=== PATIENT | male | born 1970 | race Caucasian/White ===

== ENCOUNTER 2016-11-02 19:09 | Emergency (ER) ==
[2016-11-02 19:20] VITALS: TEMP 98.6; BMI 28.5
--- NOTE | 2016-11-02 19:40 | ED.PDOC ---
General ED Provider: Dr. MICHELLE MARLOW Chief Complaint: Nausea/Vomiting Stated Complaint: Patient is a 46 year old male who comes to the ER with c/o dizziness, periumbilical abdominal pain, and vomiting Time Seen by Physician: 19:37 Mode of Arrival: Walk-In Information Source: Patient Exam Limitations: No limitations Nursing and Triage Documentation Reviewed and Agree: Yes GI Complaint Exam - Abdominal Pain Complaint/Exam Onset: Sudden Duration: 1 hour Symptoms Are: Resolved Timing: Intermittent Initial Severity: Mild Current Severity: Mild Location of Pain: Diffuse Radiates To: Denies: Chest, Back, Flank, LLQ, RLQ, Inguinal Character: Reports: Aching Aggravating: Reports: None Alleviating: Reports: Vomiting Associated Signs and Symptoms: Reports: Dizziness, Vomiting AAA Risk Factors: Reports: None Cardiac Risk Factors: Reports: None Testicular Torsion Risk Factors: Reports: None Surgical Obstruction Risk Factors: Reports: None Related Surgical History: Reports: None Abdominal Findings: Present: None Differential Diagnoses: Appendicitis, Bowel Obstruction, AAA Quality Indicator For Non-Traumatic Chest Pain/Syncope: EKG Performed Review of Systems - Review Of Systems Constitutional: Reports: No symptoms Eyes: Reports: No symptoms Ears, Nose, Mouth, Throat: Reports: No symptoms Respiratory: Reports: No symptoms Cardiac: Reports: Lightheadedness GI: Reports: Abdominal pain, Nausea, Vomiting : Reports: No symptoms Musculoskeletal: Reports: No symptoms Skin: Reports: No symptoms Neurological: Reports: No symptoms Endocrine: Reports: No symptoms Hematologic/Lymphatic: Reports: No symptoms All Other Systems: Reviewed and Negative Past Medical History - Past Medical History Endocrine: Reports: None Cardiovascular: Reports: None Respiratory: Reports: None Hematological: Reports: None Gastrointestinal: Reports: None Genitourinary: Reports: None Neuro/Psych: Reports: None Musculoskeletal: Reports: None Cancer: Reports: None - Surgical History General Surgical History: Reports: Appendectomy, Other (vasectomy ) - Family History Family History: Reports: Unknown - Social History Smoking Status: Never smoker Hx Substance Use: No Alcohol Screening: None - Immunizations Tetanus Shot up to Date: (unknown) Physical Exam - Physical Exam Appearance: Ill-appearing, No pain distress, Well-nourished Ill-appearing: Mild Eyes: NAI, EOMI, Conjunctiva clear ENT: Ears normal, Nose normal, Oropharynx normal Respiratory: Airway patent, Breath sounds clear, Breath sounds equal, Respirations nonlabored Cardiovascular: RRR, Pulses normal, No rub, No murmur GI/: Soft, Nontender Musculoskeletal: Normal strength, ROM intact, No edema, No calf tenderness Skin: Warm, Dry, Normal color Neurological: Sensation intact, Motor intact, Reflexes intact, Cranial nerves intact, Alert, Oriented Psychiatric: Anxious Interpretation - Radiology Interpretation Radiology Interpretation By: Radiologist Radiology Results: Negative Exam Interpreted: CT Scan (head and abdomen. ) - EKG Interpretation Time of EKG #1: 20:34 Rate: Normal Rhythm: Sinus Ectopy: None Ramona: NL ST Segment: Normal Interpretation: Normal EKG Re-Evaluation - Re-Evaluation Time of Re-Evaluation: 21:20 Status: Improved Critical Care Note - Critical Care Note Total Time (mins): 0 Course - Course Hematology/Chemistry: 11/02/16 20:05 11/02/16 20:05 Orders, Labs, Meds: Lab Review 11/02/16 11/02/16 20:05 20:06 WBC 6.97 RBC 4.86 Hgb 13.6 L Hct 40.7 L MCV 83.7 MCH 28.0 MCHC 33.4 RDW Coeff of Shira 12.1 Plt Count 175 Immature Gran % (Auto) 0.3 Neut % (Auto) 69.4 Lymph % (Auto) 22.1 [place] % (Auto) 6.6 Eos % (Auto) 0.9 Baso % (Auto) 0.7 Immature Gran # (Auto) 0.0 Neut # 4.8 Lymph # 1.5 [place] # 0.5 Eos # 0.1 Baso # 0.1 Sodium 142 Potassium 4.1 Chloride 109 H Carbon Dioxide 23 Anion Gap 14.1 BUN 11 Creatinine 1.13 H Estimated GFR (MDRD) 70.00 BUN/Creatinine Ratio 9.73 Glucose 90 Calcium 8.7 Total Bilirubin 0.34 AST 14 L ALT 15 Alkaline Phosphatase 73 Total Creatine Kinase 119 CK-MB (CK-2) 1.3 CK-MB (CK-2) % 1.07735 Troponin I < 0.0100 Total Protein 6.5 Albumin 3.9 Globulin 2.6 Albumin/Globulin Ratio 1.50 Influenza A (Rapid) Negative Influenza B (Rapid) Negative Orders Category Date Time Status EKG-(ED ONLY) Stat CARDIO 11/02/16 20:00 Completed ED IV/MEDIPORT/POWERPORT .ONCE EMERGENCY 11/02/16 20:00 Active ED ORTHOSTATIC VITAL SIGNS .ONCE EMERGENCY 11/02/16 20:00 Active CBC W/ AUTO DIFF Stat LAB 11/02/16 20:05 Completed COMPREHENSIVE METABOLIC PANEL Stat LAB 11/02/16 20:05 Completed CREATINE KINASE Stat LAB 11/02/16 20:05 Completed MOLECULAR GROUP A STREP Stat LAB 11/02/16 20:06 Results RAPID FLU A/B Stat LAB 11/02/16 20:06 Completed STREP SCREEN Stat LAB 11/02/16 20:06 Results TROPONIN I Stat LAB 11/02/16 20:05 Completed 0.9 % Sodium Chloride [Saline Flush] MEDS 11/02/16 20:00 Discontinued 1 syr IVF PRN PRN Ondansetron HCl/Pf [Zofran 4 mg/2 ml] MEDS 11/02/16 20:53 Discontinued 4 mg IVP ONCE STA Sodium Chloride 0.9% [Sodium Chloride] 1,000 ml MEDS 11/02/16 20:00 Discontinued IV 1,000 mls/hr Sodium Chloride 0.9% [Sodium Chloride] 1,000 ml MEDS 11/02/16 20:00 Discontinued IV 125 mls/hr CT ABDOMEN/PELVIS WO CONTRAST Stat RADS 11/02/16 20:[address] HEAD W/O CONTRAST Stat RADS 11/02/16 20:00 Completed Medications Discontinued Medications Generic Name Dose Route Start Last Admin Trade Name Freq PRN Reason Stop Dose Admin Sodium Chloride 1,000 mls @ 125 mls/hr 11/02/16 20:00 11/02/16 20:08 Sodium Chloride IV 11/03/16 03:59 125 mls/hr .Q8H STA Administration Sodium Chloride 1,000 mls @ 1,000 mls/hr 11/02/16 20:00 11/02/16 21:52 Sodium Chloride IV 11/02/16 20:59 1,000 mls/hr .Q1H STA Administration Ondansetron HCl 4 mg 11/02/16 20:53 11/02/16 21:04 Zofran 4 Mg/2 Ml IVP 11/02/16 20:54 4 mg ONCE STA Administration Sodium Chloride 1 syr 11/02/16 20:00 Saline Flush IVF PRN PRN To flush IV Vital Signs: Temp Pulse Resp BP Pulse Ox 11/02/16 20:15 125/86 11/02/16 20:13 120/71 11/02/16 19:10 98.6 F 79 20 131/91 H 99 Departure - Departure Time of Disposition: 21:38 Disposition: HOME SELF-CARE Discharge Problem: Nausea, Vomiting Instructions: Acute Nausea and Vomiting (ED) Condition: Fair Pt referred to PMD for follow-up: Yes Additional Instructions: Push fluids Take medications as needed for nausea Follow up with PCP in 2 days Prescriptions: Ondansetron HCl [Zofran Tab] 4 mg PO Q8H PRN #14 tablet PRN Reason: Nausea / Vomiting Allergies/Adverse Reactions: Allergies dextromethorphan HBr [From Tylenol Cold Multi-Symptom Day] Adverse Reaction ( Verified 11/02/16 21:10) phenylephrine HCl [From Tylenol Cold Multi-Symptom Day] Adverse Reaction ( Verified 11/02/16 21:10) Home Medications: Ambulatory Orders Ondansetron HCl [Zofran Tab] 4 mg PO Q8H PRN #14 tablet 11/02/16 Disposition Discussed With: Patient, Family
[2016-11-02] MEDS ORDERED: SODIUM CHLORIDE 1,000 ML IV STA ×2 (20:00)
[2016-11-02 20:15] VITALS: BP 125/86
[2016-11-02 20:20] LABS: BASOPHILS # (AUTO) 0.1 K/uL (0-0.2); BASOPHILS % (AUTO) 0.7 % (0.0-3.0); EOSINOPHILS # (AUTO) 0.1 K/ul (0.0-0.7); EOSINOPHILS % (AUTO) 0.9 % (0.0-7.0); HEMATOCRIT 40.7 % (42.0-52.0); HEMOGLOBIN 13.6 g/dl (14.0-18.0); IMMATURE GRANULOCYTE % (AUTO) 0.3 % (0.0-5.0); LYMPHOCYTES # (AUTO) 1.5 K/uL (0.60-3.4); LYMPHOCYTES % (AUTO) 22.1 (10.0-50.0); MEAN CORPUSCULAR HGB CONC 33.4 (31.8-35.4); MEAN CORPUSCULAR VOLUME 83.7 fl (80.0-94.0); MONOCYTES # (AUTO) 0.5 K/uL (0.4-2.0); MONOCYTES % (AUTO) 6.6 (0-10); NEUTROPHILS # (AUTO) 4.8 K/ul (2.0-6.9); NEUTROPHILS % (AUTO) 69.4; PLATELET COUNT 175 10^3/uL (140-440); RED BLOOD COUNT 4.86 10^6/ul (4.70-6.10); WHITE BLOOD COUNT 6.97 K/ul (4.2-10.2)
[2016-11-02 20:25] LABS: FLU INTERNAL QC INTERNAL QC VALID; RAPID FLU A NEGATIVE (NEGATIVE); RAPID FLU B NEGATIVE (NEGATIVE)
[2016-11-02] MEDS ORDERED: ZOFRAN 4 MG/2 ML IVP STA (20:53)
[2016-11-02 20:55] LABS: ALANINE AMINOTRANSFERASE 15 U/L (12-78); ALBUMIN 3.9 g/dL (3.4-5.0); ALKALINE PHOSPHATASE 73 U/L (50-136); ANION GAP 14.1; ASPARTATE AMINO TRANSFERASE 14 U/L (15-37); BILIRUBIN,TOTAL 0.34 mg/dL (0.00-1.20); BLOOD UREA NITROGEN 11 mg/dL (7-18); BUN/CREATININE RATIO 9.73; CALCIUM 8.7 mg/dL (8.2-10.2); CARBON DIOXIDE 23 mmol/L (21-32); CHLORIDE 109 mmol/L (98-107); CREATINE KINASE 119 U/L; CREATININE 1.13 mg/dL (0.60-1.10); GLUCOSE 90 mg/dL (70-100); POTASSIUM 4.1 mmol/L (3.5-5.1); SODIUM 142 mmol/L (136-145); TOTAL PROTEIN 6.5 g/dL (6.4-8.2)
--- NOTE | 2016-11-02 20:59 | CT ---
EXAM: CT head without contrast HISTORY: Dizziness COMPARISON: CT head 09/04/2016 TECHNIQUE: Serial axial images of the brain were obtained from the skull base to the vertex without IV contrast. FINDINGS: The ventricles, cisterns and sulci are normal. The piper-white matter junction is well ma intained. No midline shift or mass is identified. There is no abnormal intra or extra-axial fluid collection. The paranasal sinuses demonstrate mild mucosal thickening. The mastoid air cells are c lear. The osseous calvarium is intact. IMPRESSION: No acute intracranial abnormality or hemorrhage. If further evaluation is clinically indicated, MRI may be obtained. There is mild paranasal sinus mucosal thickening.
[2016-11-02 21:03] LABS: CREATINE KINASE MB 1.3 ng/ml (0.0-3.6)
--- NOTE | 2016-11-02 21:08 | CT ---
EXAM: CT abdomen pelvis without contrast HISTORY: Abdominal pain. Previous appendectomy, vasectomy COMPARISON: 09/04/2016 TECHNIQUE: Serial axial images of the abdomen pelvis were performed from the lung bases through the inferior pelvis without contrast. These were viewed in multiple planes. FINDINGS: Images of the lower thorax show no pulmonary infiltrate. No pleural fluid is seen. Abdomen. There is no intraperitoneal free air. The liver, spleen, pancreas, adrenal glands are unremarkable. There is no renal calculus. No obstruction of either kidney or ureter is seen. There is no cholelithiasis or biliary ductal dilatation seen. There is no ascites. There is no small bowel obstruction or bowel wall thickening. Pelvis. No free fluid. No adenopathy. Minimal prostatic hypertrophy. IMPRESSION: 1. No bowel or urinary obstruction. 2. Solid organs to include liver, spleen, and pancreas show no acute findings. 3. There is no cholelithiasis or biliary ductal dilatation seen.
== END 2016-11-02 23:00 | disposition home or self-care (01) ==
LOC: ED 19:09
DX: R11.2 Nausea with vomiting, unspecified (principal); R42 Dizziness and giddiness; R10.84 Generalized abdominal pain
CPT/HCPCS: 36415; 80053; 82550; 82553; 84484; 85025; 87651; 87804; 87880; 93005; 93010; 96360; 96361; 96374; 99284

== ENCOUNTER 2016-11-26 13:13 | Emergency (ER) ==
[2016-11-26 13:22] VITALS: BP 111/76; TEMP 98.4; BMI 27.5
--- NOTE | 2016-11-26 13:33 | ED.PDOC ---
General ED Provider: Dr. BOBBY FAIRBANKS Chief Complaint: Nausea/Vomiting Stated Complaint: Vomited x 1-2 times yesterday after eating hamburger. today he is doing fine, was here 1 month ago for the same reason, Time Seen by Physician: 13:31 Mode of Arrival: Walk-In Information Source: Patient Nursing and Triage Documentation Reviewed and Agree: Yes GI Complaint Exam - Vomiting/Diarrhea Complaint/Exam Symptoms Are: Resolved Episodes of Vomiting over last 24 Hours: 2 Initial Severity: Mild Current Severity: None Character of Vomiting: Reports: Non-bilious Aggravating: Reports: Food Alleviating: Reports: None Associated Signs and Symptoms: Denies: Dizziness, Light-headedness, Melena, Hematemesis, Fever, Abdominal pain, Cramping Related History: Reports: Similar episode Non-GI Risk Factors: Reports: None Surgical Obstruction Risk Factors: Reports: None Related Surgical History: Reports: None Abdominal Findings: Absent: Pulsatile mass, Abdominal distention, Unequal femoral pulses Rectal Exam: Present: Normal Findings Differential Diagnoses: Gastritis, PUD Review of Systems - Review Of Systems Constitutional: Reports: No symptoms Eyes: Reports: No symptoms Ears, Nose, Mouth, Throat: Reports: No symptoms Respiratory: Reports: No symptoms Cardiac: Reports: No symptoms GI: Reports: Nausea, Vomiting : Reports: No symptoms Musculoskeletal: Reports: No symptoms Skin: Reports: No symptoms Neurological: Reports: No symptoms Endocrine: Reports: No symptoms Hematologic/Lymphatic: Reports: No symptoms All Other Systems: Reviewed and Negative Past Medical History - Past Medical History Previously Healthy: No Endocrine: Reports: None Cardiovascular: Reports: None Respiratory: Reports: None Hematological: Reports: None Gastrointestinal: Reports: None Genitourinary: Reports: None Neuro/Psych: Reports: None Musculoskeletal: Reports: None Cancer: Reports: None - Surgical History General Surgical History: Reports: Appendectomy, Other (vasectomy ) - Family History Family History: Reports: Unknown - Social History Smoking Status: Never smoker Hx Substance Use: No Alcohol Screening: None Physical Exam - Physical Exam Appearance: Well-appearing, No pain distress, Well-nourished Eyes: NAI, EOMI, Conjunctiva clear ENT: Ears normal, Nose normal, Oropharynx normal Respiratory: Airway patent, Breath sounds clear, Breath sounds equal, Respirations nonlabored Cardiovascular: RRR, Pulses normal, No rub, No murmur GI/: Soft, Nontender, No masses, Bowel sounds normal, No Organomegaly Musculoskeletal: Normal strength, ROM intact, No edema, No calf tenderness Skin: Warm, Dry, Normal color Neurological: Sensation intact, Motor intact, Reflexes intact, Cranial nerves intact, Alert, Oriented Psychiatric: Affect appropriate, Mood appropriate Critical Care Note - Critical Care Note Total Time (mins): 0 Course - Course Hematology/Chemistry: 11/26/16 13:35 11/26/16 13:35 Orders, Labs, Meds: Lab Review 11/26/16 13:35 WBC 8.21 RBC 5.27 Hgb 15.0 Hct 44.4 MCV 84.3 MCH 28.5 MCHC 33.8 RDW Coeff of Shira 12.6 Plt Count 177 Immature Gran % (Auto) 0.5 Neut % (Auto) 75.7 Lymph % (Auto) 16.1 [place] % (Auto) 6.3 Eos % (Auto) 0.7 Baso % (Auto) 0.7 Immature Gran # (Auto) 0.0 Neut # 6.2 Lymph # 1.3 [place] # 0.5 Eos # 0.1 Baso # 0.1 Sodium 141 Potassium 4.0 Chloride 109 H Carbon Dioxide 23 Anion Gap 13.0 BUN 10 Creatinine 1.01 Estimated GFR (MDRD) 80.00 BUN/Creatinine Ratio 9.90 Glucose 88 Calcium 8.9 Total Bilirubin 0.83 AST 14 L ALT 16 Alkaline Phosphatase 80 Total Protein 6.7 Albumin 4.1 Globulin 2.6 Albumin/Globulin Ratio 1.58 Amylase 87 Lipase 10 Orders Category Date Time Status AMYLASE Stat LAB 11/26/16 13:35 Completed CBC W/ AUTO DIFF Stat LAB 11/26/16 13:35 Completed COMPREHENSIVE METABOLIC PANEL Stat LAB 11/26/16 13:35 Completed LIPASE Stat LAB 11/26/16 13:35 Completed Vital Signs: Temp Pulse Resp BP Pulse Ox 11/26/16 13:13 98.4 F 74 20 111/76 98 Departure - Departure Time of Disposition: 14:08 Disposition: HOME SELF-CARE Discharge Problem: Peptic ulcer Instructions: Gastritis (ED) Condition: Stable Pt referred to PMD for follow-up: Yes Additional Instructions: f/u at [facility] needs EGD as out patiebnt soft diet Prescriptions: Ondansetron HCl [Zofran] 4 mg PO TID #14 tablet Ranitidine HCl [Zantac] 150 mg PO BIDAC #20 tablet Allergies/Adverse Reactions: Allergies dextromethorphan HBr [From Tylenol Cold Multi-Symptom Day] Adverse Reaction ( Verified 11/26/16 13:22) phenylephrine HCl [From Tylenol Cold Multi-Symptom Day] Adverse Reaction ( Verified 11/26/16 13:22) Home Medications: Ambulatory Orders Ondansetron HCl [Zofran] 4 mg PO TID #14 tablet 11/26/16 Ranitidine HCl [Zantac] 150 mg PO BIDAC #20 tablet 11/26/16 Disposition Discussed With: Patient
[2016-11-26 13:42] LABS: BASOPHILS # (AUTO) 0.1 K/uL (0-0.2); BASOPHILS % (AUTO) 0.7 % (0.0-3.0); EOSINOPHILS # (AUTO) 0.1 K/ul (0.0-0.7); EOSINOPHILS % (AUTO) 0.7 % (0.0-7.0); HEMATOCRIT 44.4 % (42.0-52.0); IMMATURE GRANULOCYTE % (AUTO) 0.5 % (0.0-5.0); LYMPHOCYTES # (AUTO) 1.3 K/uL (0.60-3.4); LYMPHOCYTES % (AUTO) 16.1 (10.0-50.0); MEAN CORPUSCULAR HEMOGLOBIN 28.5 pg (27.0-31.0); MEAN CORPUSCULAR HGB CONC 33.8 (31.8-35.4); MEAN CORPUSCULAR VOLUME 84.3 fl (80.0-94.0); MONOCYTES # (AUTO) 0.5 K/uL (0.4-2.0); MONOCYTES % (AUTO) 6.3 (0-10); NEUTROPHILS # (AUTO) 6.2 K/ul (2.0-6.9); NEUTROPHILS % (AUTO) 75.7; PLATELET COUNT 177 10^3/uL (140-440); RED BLOOD COUNT 5.27 10^6/ul (4.70-6.10); WHITE BLOOD COUNT 8.21 K/ul (4.2-10.2)
[2016-11-26 14:03] LABS: ALBUMIN 4.1 g/dL (3.4-5.0); ALBUMIN/GLOBULIN RATIO 1.58; BILIRUBIN,TOTAL 0.83 mg/dL (0.00-1.20); BUN/CREATININE RATIO 9.9; CALCIUM 8.9 mg/dL (8.2-10.2); CREATININE 1.01 mg/dL (0.60-1.10); TOTAL PROTEIN 6.7 g/dL (6.4-8.2)
== END 2016-11-26 14:24 | disposition home or self-care (01) ==
LOC: ED 13:13
DX: K27.9 Peptic ulcer, site unspecified, unspecified as acute or chronic, without hemorrhage or perforation (principal)
CPT/HCPCS: 36415; 80053; 82150; 83690; 85025; 99283

== ENCOUNTER 2017-02-02 16:24 | Emergency (ER) ==
[2017-02-02 16:39] VITALS: BP 127/82; TEMP 98.6; BMI 26.2
--- NOTE | 2017-02-02 17:24 | ED.PDOC ---
General ED Provider: Dr. MAYANK JEREZ Chief Complaint: Nausea/Vomiting Stated Complaint: vomiting this PM; working outside Time Seen by Physician: 17:23 Mode of Arrival: Walk-In Information Source: Patient Exam Limitations: No limitations, Clinical condition [facility] [address] Nursing and Triage Documentation Reviewed and Agree: Yes Review of Systems - Review Of Systems Constitutional: Reports: No symptoms, Malaise (Emesis this PM) Ears, Nose, Mouth, Throat: Reports: No symptoms Skin: Reports: No symptoms Neurological: Reports: No symptoms All Other Systems: Reviewed and Negative Past Medical History - Past Medical History Previously Healthy: No Endocrine: Reports: None Cardiovascular: Reports: None Respiratory: Reports: None Hematological: Reports: None Gastrointestinal: Reports: None Genitourinary: Reports: None Neuro/Psych: Reports: None Musculoskeletal: Reports: None Cancer: Reports: None - Surgical History General Surgical History: Reports: Appendectomy, Other (vasectomy ) - Family History Family History: Reports: Unknown - Social History Smoking Status: Never smoker Hx Substance Use: No Alcohol Screening: None Physical Exam - Physical Exam Appearance: Well-appearing Eyes: NAI, EOMI ENT: Ears normal, Oropharynx normal Neck: Supple Respiratory: Airway patent, Breath sounds clear, Breath sounds equal, Respirations nonlabored Cardiovascular: RRR, Pulses normal GI/: Soft, Nontender, Bowel sounds normal Musculoskeletal: Normal strength, ROM intact Skin: Warm, Dry, Normal color Neurological: Sensation intact, Motor intact, Alert, Oriented Psychiatric: Affect appropriate, Mood appropriate Critical Care Note - Critical Care Note Total Time (mins): 8 Course - Course Orders, Labs, Meds: Point of care Glucose = 99 Vital Signs: Temp Pulse Resp BP Pulse Ox 02/02/17 16:26 98.6 F 80 20 127/82 97 Departure - Departure Time of Disposition: 17:41 Disposition: HOME SELF-CARE Discharge Problem: Gastritis Qualifiers: Gastritis type: superficial Chronicity: acute Gastritis bleeding: without bleeding Qualifier Code: (K29.00) Acute gastritis without bleeding Instructions: Gastritis (ED) Condition: Fair Pt referred to PMD for follow-up: Yes (Follow up with primary care provider) Additional Instructions: Follow up with primary care provider; call for appointment. Allergies/Adverse Reactions: Allergies dextromethorphan HBr [From Tylenol Cold Multi-Symptom Day] Adverse Reaction ( Verified 02/02/17 16:33) phenylephrine HCl [From Tylenol Cold Multi-Symptom Day] Adverse Reaction ( Verified 02/02/17 16:33) Home Medications: Ambulatory Orders 1 [No Reported Medications] 02/02/17
== END 2017-02-02 17:53 | disposition home or self-care (01) ==
LOC: ED 16:24
DX: K29.00 Acute gastritis without bleeding (principal); R11.2 Nausea with vomiting, unspecified
CPT/HCPCS: 99283

== ENCOUNTER 2018-09-25 02:06 | Emergency (ER) ==
[2018-09-25 02:09] VITALS: BMI 27.3
[2018-09-25] MEDS ORDERED: ZOFRAN 4 MG/2 ML IVP STA (02:17)
[2018-09-25] MEDS ORDERED: SODIUM CHLORIDE 1,000 ML IV STA (02:17)
--- NOTE | 2018-09-25 03:32 | CT ---
EXAM: CT scan abdomen pelvis without contrast HISTORY: Vomiting COMPARISON: CT scan abdomen pelvis 11/02/2016 FINDINGS: Contiguous axial images obtained through the abdomen pelvis without contrast utilizing 3-m m collimation. Sagittal and coronal reconstructions were imaged and reviewed. The visualized lung b ases are clear. Gallbladder is fluid filled without cholelithiasis. The liver, pancreas, spleen and adrenal glands have normal unenhanced CT appearance. Minimal atherosclerotic changes are seen invol ving the aorta without and formation.. The right kidneys morphologically normal. There is punctate nonobstructive calculus lower pole left kidney. The prostate gland is normal in size. The bladder i s decompressed.. There are dilated air and fluid filled loops of small bowel extending from left upp er quadrant measuring upwards of 3.3 cm with gradual transition to normal caliber small bowel within the left lower quadrant. Findings may represent early or incomplete small bowel obstruction versus g astroenteritis/extensive ileus.: Decompressed. There is no free fluid or joint change there is no C T evidence appendicitis.. Bone windows reveals no evidence of lytic or blastic lesions. IMPRESSION: Dilated small bowel with gradual transition in the left lower quadrant as described.. Early/incomple te small bowel obstruction versus ileus/gastroenteritis Nonobstructive left-sided nephrolithiasis. Mild ASVD. . Results were conveyed via telephone to the emergency room physician 3:27 a.m. 09/25/2018
--- NOTE | 2018-09-25 06:18 | ED.PDOC ---
General ED Provider: Dr. ROSA OLIVARES-ER Chief Complaint: Nausea/Vomiting Stated Complaint: rodney been vomiting--no diarrhea Time Seen by Physician: 02:10 Mode of Arrival: Walk-In Information Source: Patient Exam Limitations: No limitations Primary Care Provider: NICCI RUIZ Nursing and Triage Documentation Reviewed and Agree: Yes Does patient meet sepsis criteria?: No System Inflammatory Response Syndrome: Not Applicable Sepsis Protocol: For patient's 13 years and over: Temp is 96.8 and below OR 101 and greater Pulse >90 BPM Resp >20/minute Acutely Altered Mental Status Are patient's symptoms suggestive of a new infection, such as: -Pneumonia -Skin, Soft Tissue -Endocarditis -UTI -Bone, Joint Infection -Implantable Device -Acute Abdominal Infection -Wound Infection -Meningitis -Blood Stream Catheter Infection -Unknown GI Complaint Exam - Vomiting/Diarrhea Complaint/Exam Onset/Duration: a few hours Symptoms Are: Still present Initial Severity: Mild Current Severity: Mild Character of Vomiting: Reports: Non-bilious Aggravating: Reports: Food Alleviating: Reports: None Associated Signs and Symptoms: Denies: Dizziness, Light-headedness, Melena, Hematemesis, Fever, Abdominal pain, Cramping Related Surgical History: Reports: Appendectomy Abdominal Findings: Present: None Kussmaul Respirations Present: No Differential Diagnoses: Bowel Obstruction, Viral Gastroenteritis Review of Systems - Review Of Systems Constitutional: Reports: No symptoms Eyes: Reports: No symptoms Ears, Nose, Mouth, Throat: Reports: No symptoms Respiratory: Reports: No symptoms Cardiac: Reports: No symptoms GI: Reports: Nausea, Vomiting : Reports: No symptoms Musculoskeletal: Reports: No symptoms Skin: Reports: No symptoms Neurological: Reports: No symptoms Endocrine: Reports: No symptoms Hematologic/Lymphatic: Reports: No symptoms All Other Systems: Reviewed and Negative Past Medical History - Past Medical History Previously Healthy: No Endocrine: Reports: None Cardiovascular: Reports: None Respiratory: Reports: None Hematological: Reports: None Gastrointestinal: Reports: None Genitourinary: Reports: None Neuro/Psych: Reports: None Musculoskeletal: Reports: None Cancer: Reports: None - Surgical History General Surgical History: Reports: Appendectomy, Other (vasectomy ) - Family History Family History: Reports: Unknown - Social History Smoking Status: Never smoker Hx Substance Use: No Alcohol Screening: Occasionally - Immunizations Tetanus Shot up to Date: Yes Physical Exam - Physical Exam Appearance: Well-appearing, No pain distress, Well-nourished Eyes: NAI, EOMI, Conjunctiva clear ENT: Ears normal Neck: Supple Respiratory: Airway patent, Breath sounds clear, Breath sounds equal, Respirations nonlabored Cardiovascular: RRR, Pulses normal, No rub, No murmur GI/: Soft, Nontender, No masses Musculoskeletal: Normal strength Skin: Warm, Dry, Normal color Neurological: Sensation intact, Motor intact, Reflexes intact, Cranial nerves intact, Alert, Oriented Psychiatric: Affect appropriate, Mood appropriate Interpretation - Radiology Interpretation Radiology Interpretation By: Radiologist Radiology Results: Positive Exam Interpreted: CT Scan - EKG Interpretation Time of EKG #1: 06:17 Rate: Normal Rhythm: Sinus Ectopy: None [place]: [place] ST Segment: Normal Physician Notification - Case Discussed Physician Notified: dr connolly Time of Notification: 07:00 Critical Care Note - Critical Care Note Total Time (mins): 0 Course - Course Hematology/Chemistry: 09/25/18 02:15 09/25/18 02:15 Orders, Labs, Meds: Lab Review 09/25/18 09/25/18 09/25/18 02:15 02:15 02:20 WBC 10.50 H RBC 5.07 Hgb 14.6 Hct 43.4 MCV 85.6 MCH 28.8 MCHC 33.6 RDW Coeff of Shira 12.1 Plt Count 176 Immature Gran % (Auto) 0.5 Neut % (Auto) 65.0 Lymph % (Auto) 26.0 [place] % (Auto) 6.6 Eos % (Auto) 1.3 Baso % (Auto) 0.6 Immature Gran # (Auto) 0.1 Neut # (Auto) 6.8 Lymph # (Auto) 2.7 [place] # (Auto) 0.7 Eos # (Auto) 0.1 Baso # (Auto) 0.1 Sodium 138.2 Potassium 3.82 Chloride 103.9 Carbon Dioxide 26.8 Anion Gap 11.32 BUN 11.9 Creatinine 1.08 Estimated GFR (MDRD) 73.00 BUN/Creatinine Ratio 11.01 Glucose 105.5 Calcium 9.42 Total Bilirubin 0.72 AST 22.7 ALT 24.5 Alkaline Phosphatase 66.9 Total Creatine Kinase 98.4 Troponin I < 0.012 Total Protein 7.38 Albumin 4.64 Globulin 2.74 Albumin/Globulin Ratio 1.69 Amylase 128.7 H Lipase 59.4 Urine Color Yellow Urine Clarity Clear Urine pH 7.0 Ur Specific [place] 1.020 Urine Protein Negative Urine Glucose (UA) Negative Urine Ketones Negative Urine Blood Negative Urine Nitrite Negative Urine Bilirubin Negative Urine Urobilinogen 1.0 Ur Leukocyte Esterase Negative Orders Category Date Time Status EKG-(ED ONLY) Stat CARDIO 09/25/18 02:17 Completed ED IV/MEDIPORT/POWERPORT .ONCE EMERGENCY 09/25/18 02:17 Active AMYLASE Stat LAB 09/25/18 02:15 Completed CBC W/ AUTO DIFF Stat LAB 09/25/18 02:15 Completed COMPREHENSIVE METABOLIC PANEL Stat LAB 09/25/18 02:15 Completed CREATINE KINASE Stat LAB 09/25/18 02:15 Completed LIPASE Stat LAB 09/25/18 02:15 Completed TROPONIN I Stat LAB 09/25/18 02:15 Completed URINALYSIS C & S IF INDICATED Stat LAB 09/25/18 02:20 Completed 0.9 % Sodium Chloride [Saline Flush] MEDS 09/25/18 02:16 Discontinued 1 syr IVF PRN PRN Ondansetron HCl/Pf [Zofran 4 mg/2 ml] MEDS 09/25/18 02:17 Discontinued 4 mg IVP ONCE STA Sodium Chloride 0.9% [Sodium Chloride] 1,000 ml MEDS 09/25/18 02:[address] ABDOMEN/PELVIS WO CONTRAST Stat RADS 09/25/18 02:[address] ABDOMEN/PELVIS WO CONTRAST Stat RADS 09/25/18 03:31 Completed Medications Discontinued Medications Generic Name Dose Route Start Last Admin Trade Name Freq PRN Reason Stop Dose Admin Sodium Chloride 1,000 mls @ 1,000 mls/hr 09/25/18 02:17 09/25/18 02:39 Sodium Chloride IV 09/25/18 03:16 1,000 mls/hr BOLUS STA Administration Ondansetron HCl 4 mg 09/25/18 02:17 09/25/18 02:40 Zofran 4 Mg/2 Ml IVP 09/25/18 02:18 4 mg ONCE STA Administration Sodium Chloride 1 syr 09/25/18 02:16 09/25/18 02:39 Saline Flush IVF 1 syr PRN PRN Administration To flush IV Vital Signs: Temp Pulse Resp BP Pulse Ox 09/25/18 04:30 98 F 76 18 138/84 97 09/25/18 02:07 97.9 F 93 H 20 146/91 H 97 Departure - Departure Time of Disposition: 06:29 Disposition: TSF SHORT-TRM HOSP Discharge Problem: Small bowel obstruction Condition: Good Pt referred to PMD for follow-up: Yes IPMP verified?: No Allergies/Adverse Reactions: Allergies dextromethorphan HBr [From Tylenol Cold Multi-Symptom Day] Adverse Reaction ( Verified 09/25/18 02:08) phenylephrine HCl [From Tylenol Cold Multi-Symptom Day] Adverse Reaction ( Verified 09/25/18 02:08) Home Medications: Ambulatory Orders 1 [No Reported Medications] 02/02/17 Transfer Form Completed: Yes Disposition Discussed With: Patient
[2018-09-25 06:44] VITALS: BP 138/84; TEMP 98
--- NOTE | 2018-09-25 07:08 | CT ---
EXAM: CT ABDOMEN AND PELVIS HISTORY: Small bowel obstruction TECHNIQUE: CT abdomen and pelvis without intravenous contrast. Images were reconstructed using 5 mm section thickness. Reformations were prepared. Oral contrast was administered. COMPARISON: 09/25/2018 at 0244 hours FINDINGS: Diagnostic limitations may exist without including contrast enhanced images. Liver and spleen appear normal. Gallbladder, pancreas and adrenal glands are within normal limits. There is a small 2 mm c alculus within the left kidney. No hydronephrosis or evidence of ureteral obstruction. Minimal athe rosclerotic disease. Oral contrast agent reached the ileocecal valve. Several loops of dilated small bowel are seen in th e mid abdomen measuring up to about 3.2 cm in diameter. Scattered air-fluid levels are seen. Mild f old thickening of these dilated small bowel loops. Terminal ileum has normal caliber and there is no evidence of active enterocolitis. The colon has normal caliber. Ventral abdominal wall is intact. No acute bony finding. Lung bases are clear. No pneumoperitoneum . IMPRESSION: 1. Findings suggestive of incomplete small bowel obstruction. 2. Tiny left renal calculus.
== END 2018-09-25 08:06 | disposition short-term general hospital (02) ==
LOC: ED 02:06
DX: K56.609 Unspecified intestinal obstruction, unspecified as to partial versus complete obstruction (principal)
CPT/HCPCS: 36415; 80053; 81001; 82150; 82550; 83690; 84484; 85025; 93005; 93010; 96361; 96374; 99285

== ENCOUNTER 2018-09-25 08:09 | Outpatient (CLI) ==
[2018-09-25 02:09] VITALS: BMI 27.3
== END 2018-09-25 08:32 | disposition short-term general hospital (02) ==
LOC: AMBL 08:09
PROVIDERS: ATTEND Internal Medicine
DX: K56.600 Partial intestinal obstruction, unspecified as to cause (principal)